=== PATIENT | male | born 1955 | race Two or more races ===

== ENCOUNTER → 2024-02-11 | Outpatient (CLI) | payer OTHER, SELFPAY ==
--- NOTE | 2024-02-11 09:00 | XR_ITS ---
Examination: Transrectal prostate sonography complete TECHNIQUE: Transrectal prostate sonographic images obtained Exam date and time: February 11, 2024 1003 hours INDICATIONS: Elevated PSA laboratory examination 5 years ago. FINDINGS: Prostate 5.0 x 2.7 x 5.0 cm volume 35.1 cc Prostate nodule depicted, central left prostate, 2.1 x 1.5 x 2.3 cm IMPRESSION: Solid prostate nodules above
== END | disposition home or self-care (01) ==
PROVIDERS: Referring Provider Student in an Organized Health Care Education/Training Program; Visit Provider Student in an Organized Health Care Education/Training Program
DX: N40.2 Nodular prostate without lower urinary tract symptoms (principal)
CPT/HCPCS: 76872

== ENCOUNTER → 2024-09-23 | Outpatient (CLI) | payer OTHER, SELFPAY ==
[2024-09-23 16:41] LABS: Prostate Specific Antigen 14.86 ng/mL (0-4.00)
== END | disposition home or self-care (01) ==
LOC: COPL 15:29
PROVIDERS: PCP Internal Medicine; Referring Provider Surgery; Visit Provider Surgery
DX: N40.1 Benign prostatic hyperplasia with lower urinary tract symptoms (principal)
CPT/HCPCS: 36415; 84153